=== PATIENT | male | born 1980 | race Two or more races ===

== ENCOUNTER 2021-12-07 09:01 | Outpatient (REF) | payer OTHER, SELFPAY ==
[2021-12-07 09:22] LABS: Binax Internal Control QC Valid; Binax Now Covid-19 Ag Negative (Negative)
== END 2021-12-07 09:02 | disposition home or self-care (01) ==
LOC: HO.LAB 09:01
PROVIDERS: Visit Provider Internal Medicine
DX: Z20.822 Contact with and (suspected) exposure to COVID-19 (principal)
CPT/HCPCS: C9803

== ENCOUNTER 2023-12-14 08:29 | Outpatient (REF) | payer OTHER, SELFPAY ==
--- NOTE | 2023-12-14 09:00 | EMG_ITS ---
Right tibial and peroneal motor studies were performed. Right superficial peroneal and sural sensory studies were performed. Tibial H-reflex was obtained. Needle examination was performed, that was somewhat limited, but he did not tolerate it well. IMPRESSION: This study did not reveal any sign of large fiber peripheral neuropathy affecting his foot and leg. It suggested evidence of right lower lumbar radiculopathy, probably L4-5. MD KADIE Casanova/LEONORA / [phone]
== END 2023-12-14 08:30 | disposition home or self-care (01) ==
LOC: HO.NEURO 08:29
PROVIDERS: PCP Internal Medicine; Visit Provider Internal Medicine
DX: M79.604 Pain in right leg (principal)
CPT/HCPCS: 95886; 95909